=== PATIENT | female | born 2000 | race Caucasian/White ===

== ENCOUNTER 2025-06-26 06:14 | Emergency (ER) | payer OTHER, SELFPAY ==
[2025-06-26 06:22] VITALS: BP 139/86; PULSE 85; RESP 16; TEMP 36.7; O2SAT 98; BMI 31.3
--- NOTE | 2025-06-26 06:37 | ED.WOUNDLAC ---
HPI - Wound/Laceration General Date Seen: 06/26/25 Chief Complaint: Laceration/Wound Stated Complaint: L hand lac Time Seen by Provider: 06/26/25 06:28 Source: patient Mode of arrival: ambulatory Limitations: no limitations History of Present Illness HPI narrative: Patient is a 24-year-old female presenting to emergency department for laceration to her left thenar eminence. 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 She is unsure when her last tetanus shot was. She denies any other injuries. States this occurred about an hour prior to arrival. No other concerns noted Related Data Home Medications ?Medication ?Instructions ?Recorded ?Confirmed No Known Home Medications 06/26/25 06/26/25 Allergies Allergy/AdvReac Type Severity Reaction Status Date / Time No Known Drug Allergies Allergy Verified 06/26/25 06:25 Review of Systems Narrative: Pertinent systems reviewed and were negative unless stated in HPI PFSH PFSH Social History Smoking Status: Never smoker How often do you have a drink containing alcohol: never AUDIT-C Alcohol total score: 0 Non-prescribed substance use: denies use Exam Narrative: Exam Narrative: Const: Well-nourished, Well-developed, in no distress Eyes: No conjunctival injection, and symmetrical lids HENT: Atraumatic external nose and ears. Moist mucous membranes. MSK:Extremities w/o deformity, Normal Active ROM Skin: Warm, Dry. 5 cm laceration to the left thenar eminence more on the lateral aspect. For the most part it is very superficial and I am unable to pull laceration a part other than one cm area at the distal portion. Even then it just barely pulls apart and looks to be very superficial. Neuro: Normal Muscle tone, No focal neurological deficits. Psych: Awake, Alert, & Oriented x3. Appropriate mood and affect. Const: Vital Signs, click to edit/add: Vital Signs - 24 hr 06/26/25 06:22 Temperature 98.1 F Pulse Rate [Pulse Oximeter] 85 Respiratory Rate 16 Blood Pressure [Ri ght Upper Arm] 139/86 Pulse Oximetry 98 Oxygen Delivery Me thod Room Air Course Vital Signs Vital signs: Initial Vital Signs Temperature 98.1 F 06/26/25 06:22 Temperature Source Temporal Artery Scan 06/26/25 06:22 Pulse Rate 85 06/26/25 06:22 Respiratory Rate 16 06/26/25 06:22 Blood Pressure 139/86 06/26/25 06:22 Blood Pressure Mean 103 06/26/25 06:22 Blood Pressure Position Sitting 06/26/25 06:22 Pulse Oximetry 98 06/26/25 06:22 Oxygen Delivery Method Room Air 06/26/25 06:22 Vital Signs Temperature 98.1 F 06/26/25 06:22 Pulse Rate 85 06/26/25 06:22 Respiratory Rate 16 06/26/25 06:22 Blood Pressure 139/86 06/26/25 06:22 Pulse Oximetry 98 06/26/25 06:22 Oxygen Delivery Method Room Air 06/26/25 06:22 Temperature 98.1 F 06/26/25 06:22 Pulse Rate 85 06/26/25 06:22 Respiratory Rate 16 06/26/25 06:22 Blood Pressure 139/86 06/26/25 06:22 Pulse Oximetry 98 06/26/25 06:22 Oxygen Delivery Method Room Air 06/26/25 06:22 MDM - Wound/Laceration MDM Narrative Medical decision making narrative: Patient is a 24-year-old female presenting to the emergency department for left hand laceration. Overall this is a very superficial laceration and I do not believe sutures are needed as I am unable to pull most a laceration apart. A little bit I am able to pull apart just barely pulls apart. I do think glue would help keep it together for the next few days. The more the or to heal up properly. Do not believe sutures are necessary. She is unsure when her last tetanus was so tetanus will be updated. We are unable to look it up online currently. She is agreeable to this plan. Area was washed out thoroughly. No signs of deep structure involvement. Move was placed with appropriate approximation wound. Antibiotics are not indicated. She will be discharged Discharge Plan Discharge Clinical Impression: Laceration Patient Disposition: Home, Self-Care Condition: Stable Instructions: Skin Adhesive Care (ED) Additional Instructions: Skin glue will dissolve on its own over the next week. Patient can wash the area but do not scrub as this may pole off the skin glue prematurely. Pat dry the area. Do not use topical antibiotics as that will dissolve the glue faster. If worried about scar formation can place sunscreen over the area for the next 6 months whenever patient goes outside once glue is gone. Prescriptions: No Action No Known Home Medications Follow Up/Referrals: Provider,Not a Local [Primary Care Provider, Family Practice] Stand Alone Forms: [employer] Info Instructions
--- OUTSIDE RECORDS SUMMARY | 2025-06-26 06:45 | XMS_ITS | Encounter Summary ---
Author Organization [facility] Address [address] [facility] [place] [address] Care Team Providers Care Assembler Fitter Name Role Phone Reece Gutierrez MD Primary Care Provider [phone] Anju Ennis MD Unavailable Rio Frausto MD Unavailable [phone] Rose Rivera MD, Charles Unavailable [phone] Rose Rivera MD, Charles Unavailable [phone] Rose Rivera MD, Charles Unavailable [phone] Silva aRmos MD Unavailable [phone] Encounter Details Date Type Department Care Team (Late st Contact Info) Description 05/22/2024 [facility] [address] 3rd Floor,[address] [place] [facility] [address] [place] [phone] Jaclyn Tanner CMA Social History Tobacco Use Types Packs/Day Years Used Date Smoking Tobacco: Never Smokeless Tobacco: Never Alcohol Use Standard Drinks/Week Comments No 0 (1 standard drink = 0.6 oz pur e alcohol) AUDIT-C Answer Date Recorded Frequency of Alcohol Consumption Never 10/28/2018 Average Number of Drinks Not on file 019 Frequency of Binge Drinking Not on file 03/2019 PHQ-2 Answer Date Recorded PHQ-2 Score 0 10/21/2023 Adolescent Education Answer Date Record ed Getting School Help Needed Not on file 06/09 Comments No Sex and Gender Information Value Date Recorded Sex Assigned at Not on file 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 Gender Identity Not on file Sexual Orientation Not on file documented as of this encounter Plan of Treatment Not on file documented as of this encounter Visit Diagnoses Not on filedocumented in this encounter Care Teams Assembler Fitter Relationship Specialty [place] [address] [place] [address] PCP - General Family Practice 10/14/18 Anju Ennis MD [address] [place] [address] Pediatrics 05/06/20 Rio Frausto MD [address] [place] [address] Genetics, Clinical 10/13/22 Conor Rose Jr., MD [address] [place] [address] Genetics, Clinical 12/07/22 Conor Rose Jr., MD [address] [place] [address] Genetics, Clinical 01/12/23 Conor Rose Jr., MD [address] [place] [address] Assigned Pediatric Specialist Provider 05/08/23 11/11/24 Silva Ramos MD [facility] Specialty [place] - Rheumatology [address] [place] [address] Assigned Rheumatology Provider 11/05/23 05/14/25 documented as of this encounter
--- OUTSIDE RECORDS SUMMARY | 2025-06-26 06:45 | XMS_ITS | Encounter Summary ---
Author Organization [facility] Address [address] [place] [address] Care Team Providers Care Manager Product Management Name Role Phone Reece Gutierrez MD Primary Care Provider [phone] Anju Ennis MD Unavailable Rio Frausto MD Unavailable [phone] Rose Rivera MD, Charles Unavailable [phone] Rose Rivera MD, Charles Unavailable [phone] Rose Rivera MD, Charles Unavailable [phone] Silva Ramos MD Unavailable [phone] Encounter Details Date Type Department Care Team (Late st Contact Info) Description 11/09/2023 [facility] Advice 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 Gender Identity Not on file Sexual Orientation Not on file documented as of this encounter Plan of Treatment Not on file documented as of this encounter Visit Diagnoses Not on filedocumented in this encounter Care Teams Manager Product Management Relationship Specialty [place] [address] [place] [address] PCP - General Family Practice 10/14/18 Anju Ennis MD [facility] [place] [address] Pediatrics 05/06/20 Rio Frausto MD [address] [place] [address] Genetics, Clinical 10/13/22 Conor Rose Jr., MD [address] [place] [address] Genetics, Clinical 12/07/22 Conor Rose Jr., MD [address] [place] [address] Genetics, Clinical 01/12/23 Conor Rose Jr., MD [address] [place] [address] Assigned Pediatric Specialist Provider 05/08/23 11/11/24 Silva Ramos MD [facility] Specialty [place] - Rheumatology [address] [place] [address] Assigned Rheumatology Provider 11/05/23 05/14/25 documented as of this encounter
--- OUTSIDE RECORDS SUMMARY | 2025-06-26 06:45 | XMS_ITS | Clinical Summary ---
Author Organization [employer] Address [address], [place] [address] Care Team Providers Care Metal Stamping Machine Operator Name Role Phone Needs Pcp, Assignment Primary Care Provider [phone] Source Comments You are receiving this document as you are listed as the primary care provider,follow-up provider, or the patient has been referred to you for consultation.This is in compliance with the Medicare andSelect [facility] EHR Incentive Program,which states Providers who transition their patient to another setting of careor provider of care or refers their patient to another provider of care shouldprovide summary care record for each transition of care or referral. [employer] Allergies No known active allergies Medications CONCERTA 54 MG controlled release tablet Active Active Problems Problem Noted Date Diagnosed Date Migraine with aura 05/25/2024 BMI 36.0-36.9,adult 05/04/2023 Autism spectrum disorder 05/04/2023 Arthralgia of both knees 11/18/2022 Plantar fasciitis 11/18/2022 Overview (01/04/2025): bilateral bilateral Cholecystitis 01/30/2022 Attention deficit hyperactivity disorder 019 Vitamin D deficiency 11/27/2016 Strabismus 05/02/2013 Immunizations Immunization Administration Dates Next Due HepB Ped/Adol (0-18 yrs) 07/25/2003,2002,0 2002 Hib, Unspecified Formulation 07/25/2003,11/16/19 03,2002 Hib/HBV 07/25/2003,2002,2002 MCV4 Menveo 2m.+ (two vial) 04/19/2015 MMR 07/29/2006,02/28/2004 Pneumococcal 7, PED 07/25/2003,01/19/2003,2002,2002 Tdap 04/19/2015 Varicella 04/18/2008,07/25/2003 Social History Tobacco Use Types Packs/Day Years Used Date Smoking Tobacco: Never Smokeless Tobacco: Never Tobacco Cessation:Counseling Given: Not Answered Comments Unknown Sex and Gender Information Value Date Recorded Sex Assigned at Not on file Legal Sex Female 5:32 AM CDT Gender Identity Not on file Sexual Orientation Not on file Last Filed Vital Signs Vital Sign Reading Time Taken Comments Blood Pressure 135/89 01/04/2025 3:14 PM CDT Pulse 84 01/04/2025 3:14 PM CDT Temperature 37.3 C (99.1 F) 12/22/2022 5:46 PM CDT Respiratory Rate 18 12/22/2022 5:46 PM CDT Oxygen Saturation 97% 12/22/2022 5:46 PM CDT Inhaled Oxygen Concentration - - Weight 93.8 kg (206 lb 12.8 oz) 01/04/2025 3:14 PM CDT Height - - Body Mass Index - - Plan of Treatment Health Maintenance Due Date Last Done Comments Cervical Cancer Screening Due 2002 Chlamydia 2002 Hep C Screening (Preventive Services) 2002 MenB Immunization Discussion 2002 HPV Vaccine (1 - 3-dose series) 2017 HIV Screening (Preventive Services) 2018 Adult Preventive Visit 2020 DTaP/Tdap/Td Vaccine (2 - Tdap) 04/19/2025 04/19/2015 COVID-19 Vaccine ( - season) 2025 Influenza Vaccine (#1) 2025 Zoster/Shingles Vaccine (1 of 2) 2052 HepB Vaccine Completed 07/25/2003, 10/2002, 2002, Additional history exists Hib Vaccine Completed 07/25/2003, 10/2002, 2002, Additional history exists Pneumococcal Vaccine Aged Out 07/25/2003, 01/19/2003, 2002, Additional history exists No longer eligible based on patient's age to complete this topic Varicella Vaccine Completed 04/18/2008, 07/25/2003 MCV4 Vaccine Aged Out 04/19/2015 No longer eligi ble based on patient's age to complete this topic HepA Vaccine Aged Out No longer eligi ble based on patient's age to complete this topic IPV (Polio) Vaccine Aged Out No longe r eligible based on patient's age to complete this topic Insurance BCBS OUT OF STATE Care Teams Metal Stamping Machine Operator Relationship Specialty Start Date End Date Needs Pcp, [place], [place] [id number] PCP - General 07/26/22
--- OUTSIDE RECORDS SUMMARY | 2025-06-26 06:45 | XMS_ITS | Encounter Summary ---
Author Organization [facility] Address [address] [place] [address] Care Team Providers Care Commanding Officer Garage Name Role Phone Reece Gutierrez MD Primary Care Provider [phone] Anju Ennis MD Unavailable Rio Frausto MD Unavailable [phone] Rose Rivera MD, Charles Unavailable [phone] Rose Rivera MD, Charles Unavailable [phone] Rose Rivera MD, Charles Unavailable [phone] Silva Ramos MD Unavailable [phone] Encounter Details Date Type Department Care Team (Late st Contact Info) Description 11/03/2023 [facility] Medical Advice [facility] [address] [address] Joselin Lennon Social History Tobacco [...] on file 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 Gender Identity Not on file Sexual Orientation Not on file documented as of this encounter Plan of Treatment Not on file documented as of this encounter Visit Diagnoses Not on filedocumented in this encounter Care Teams Commanding Officer Garage Relationship Specialty [place] [address] [place] [address] PCP - General Family Practice 10/14/18 Anju Ennis MD [facility] [place] [address] Pediatrics 05/06/20 Rio Frausto MD [address] [place] [address] Genetics, Clinical 10/13/22 Conor Rose Jr., MD [address] [place] [address] Genetics, Clinical 12/07/22 Conor Rose Jr., MD [address] [place] [address] Genetics, Clinical 01/12/23 Conor Rose Jr., MD [address] [place] [address] Assigned Pediatric Specialist Provider 05/08/23 11/11/24 Silva Ramos MD [facility] Specialty [place] - Rheumatology [address] [place] [address] Assigned Rheumatology Provider 11/05/23 05/14/25 documented as of this encounter
--- OUTSIDE RECORDS SUMMARY | 2025-06-26 06:46 | XMS_ITS | Clinical Summary ---
Author Organization [facility] Address [address] [place] [address] Care Team Providers Care Dredge Mechanic Name Role Phone Reece Gutierrez MD Primary Care Provider [phone] Anju Ennis MD Unavailable Rio Frausto MD Unavailable [phone] Rose Rivera MD, Charles Unavailable [phone] Rose Rivera MD, Charles Unavailable [phone] Medications SUMAtriptan Succinate (IMITREX PO) Active methylphenidate (CONCERTA) 54 MG CR tabletIndications :Attention deficit hyperactivity disorder (ADHD), combined type Take 1 tablet (54 mg) by mouth every morning 30 tablet Active Additional Information Patient not taking.Reported on 05/03/2023 Active Problems Problem Noted Date Diagnosed Date ADHD (attention deficit hyperactivity disorder) 10/21/2023 Knee pain, bilateral 10/21/2023 Autism spectrum disorder 05/04/2023 BMI 36.0-36.9,adult 05/04/2023 Arthralgia of both knees 05/04/2023 Pain in both feet 05/04/2023 Plantar fasciitis 11/18/2022 Overview (05/23/2024): bilateral Patellofemoral arthralgia of both knees 11/19/19 Cholecystitis 01/30/2022 ADHD (attention deficit hype ractivity disorder), combined type 10/28/2018 Vitamin D deficiency 11/27/2016 Strabismus 05/11/2013 Immunizations Immunization Administration Dates Next Due Comvax (HIB/HepB) 07/25/2003,2002,09/01/19 03 DTAP (<7y) 07/29/2006, 4,01/19/2003,11/15,2002 DTaP, Unspecified 07/29/2006, 4,01/19/2003,11/15,2002 HIB, Unspecified 07/25/2003,2002, 3 HPV9 (Gardasil) 01/09/2019 Hepatitis B, Peds (Engerix-B/Recombivax HB) 07/25/2003,2002,2002 Influenza (IIV3) PF 05/02/2013 Influenza (prior to 2023) 05/15/2016,08/26/2004 Influenza Vaccine >6 months,quad, PF 05/15/2016, 05/02/2013,08/26/2004 Influenza, Split Virus, Triv alent, Pf (Fluzone\Fluarix) 05/15/2016,08/26/2004 MMR (MMRII) 07/29/2006, 6,02/28/2004,02/27 MMR/V (Proquad) 07/29/2006,02/28/2004 Meningococcal ACWY (Menveo ) 04/19/2015 Pneumo Conj 13-V (2010&after) 07/25/2003 ,01/19/2003,2002,09/01 Pneumococcal (PCV 7) 07/25/2003,01/20/20 03,2002,09/01 Polio, Unspecified 07/29/2006, 4,2002,09/01 Poliovirus, inactivated (IPV) 07/29/2006 ,02/28/2004,2002,09/01 TDAP Vaccine (Adacel) 04/19/2015 Varicella (Varivax) 04/18/2008,07/25/2003 Family History Medical History Relation Comments Psoriasis Maternal Grandmother Relation Status Comments Maternal Grandmother Social History Tobacco Use Types Packs/Day Years Used Date Smoking Tobacco: Never Smokeless Tobacco: Never Tobacco Cessation:Counseling Given: Not Answered Alcohol Use Standard Drinks/Week Comments No 0 [...] on file 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 Gender Identity Not on file Sexual Orientation Not on file Last Filed Vital Signs Vital Sign Reading Time Taken Comments Blood Pressure 127/84 10/21/2023 8:55 AM YOGA INSTRUCTOR Pulse 94 10/21/2023 8:55 AM YOGA INSTRUCTOR Temperature 36.4 C (97.5 F) 05/01/2020 10:29 AM CDT Respiratory Rate 16 10/21/2023 8:55 AM YOGA INSTRUCTOR Oxygen Saturation 100% 09/22/2019 10:57 AM YOGA INSTRUCTOR Inhaled Oxygen Concentration - - Weight 102.7 kg (226 lb 8 oz) 10/21/2023 8:55 AM YOGA INSTRUCTOR Height 170.3 cm (5' 7.05) 10/21/2023 8:55 AM CS T Body Mass Index 35.43 10/21/2023 8:55 AM YOGA INSTRUCTOR Plan of Treatment Health Maintenance Due Date Last Done Comments ADVANCE CARE PLANNING 2002 ANNUAL REVIEW OF HM ORDERS 2002 MENINGITIS B VACCINE (1 of 2 - Standard) 2018 HPV VACCINE (2 - 3-dose series) 02/06/2019 01/09/2019 HEPATITIS C SCREENING 2020 PHQ-2 (once per calendar year) 2024 10/21/2023, 05/03/2023, 09/22/2019, Additional history exists DTAP/TDAP/TD VACCINE (7 - Td or Tdap) 04/19/2025 04/19/2015, 07/29/2006, 07/29/2006, Additional history exists COVID-19 VACCINE ( - season) 2025 01/03/2021, 12/13/2020 INFLUENZA VACCINE (#1) 2025 6, 05/15/2016, 05/15/2016, Additional history exists YEARLY PREVENTIVE VISIT 05/25/2025 05/25/2024 PAP 05/25/2027 05/25/2024 ZOSTER VACCINE (1 of 2) 2052 HEPATITIS B VACCINE Completed 07/25/2003, 07/25/2003, 2002, Additional history exists PNEUMOCOCCAL VACCINE: PEDIATRICS (0 to 5 YEARS) AND AT-RISK PATIENTS (6 to 49 YEARS) Aged Out 07/25/2003, 07/25/2003, 01/19/2003, Additional history exists No longer eligible based on patient's age to complete this topic MENINGITIS VACCINE Aged Out 04/19/2015 No longer eligible based on patient's age to complete this topic HIV SCREENING Completed 05/25/2024 Procedures Procedure Name Priority Date/Time Associated Diagnosis Comments HIV ANTIGEN ANTIBODY COMBO Routine 05/25/2024 3:57 PM CDT Encounter for screening for infections with a predominantly sexual mode of transmission GYNECOLOGIC CYTOLOGY Routine 05/25/2024 2:48 PM CDT Encounter for screening for malignant neoplasm of cervix from Last 3 Months or Most Recently Relevant to Health Maintenance Results * HIV Antigen Antibody Combo [facility] (05/25/2024 3:57 PM CDT) HIV Antigen Antibody Combo Nonreactive Nonreactive 05/26/2024 12:14 PM CDT [facility] Comment:Negative HIV-1 p24 a ntigen and HIV-1/2 antibody screening test results usually indicate the absence of HIV-1 and HIV-2 infection. However, such negative results do not rule-out acute HIV infection. If acute HIV-1 or HIV-2 infection is suspected, detection of HIV-1 or HIV-2 RNA is recommended. This result is obtained using the Nirav Elecsys HIV Duo method on the burke [id number] immunoassay analyzer. Blood TOPOGRAPHY UNKNOWN / Unknown Client Draw / Unknown 05/25/2024 3:57 PM CDT 05/25/2024 8:30 PM CDT us Maylin Fontaine PA-C LAB - BLOOD ORDERABLES Final Result [facility] [address] [facility], Room [address] [place] [phone] * (ABNORMAL) Gynecologic Cytology (PAP) (05/25/2024 2:48 PM CDT) Interpretation Low-grade squamous intraepithelial lesion (LSIL) encompassing HPV/mild dysplasia/CIN1(A) 06/01/2024 9:11 AM CDT [facility] at 0911 CDT Comment Papanicolaou Test Limitations: Cervical cytology is a screening test with limited sensitivity, and regular screening is critical for cancer prevention. Pap tests are primarily effective for the diagnosis/prevent ion of squamous cell carcinoma, not adenocarcinoma or other cancers. 06/01/2024 9:11 AM CDT LABORATORY Specimen Adequacy Satisfactory for evaluation, endocervical/ward sformation zone component absent 06/01/2024 9:11 AM CDT [facility] Clinical Information irregular bleeding 06/01/2024 9:11 AM CDT [facility] LMP/Menopause Date Irregular 06/01/2024 9:11 AM CDT [facility] Reflex Testing Yes if ASCUS 06/01/20 24 9:11 AM CDT [facility] Previous Abnormal? No 06/01/2024 9:11 AM CDT [facility] Previous Abnormal Diagnosis N/A 06/01/2024 9:11 AM CDT [facility] Performing Labs The technical component of this testing was completed at [facility]. Stain controls for all stains resulted within this report have been reviewed and show appropriate reactivity. 06/01/2024 9:11 AM CDT [facility] Brushing CERVIX UTERI STRUCTURE / Unknown 05/25/2024 2:48 PM CDT 05/25/2024 8:27 PM CDT us Maylin Nichelle Rosharon SHETH Final R esult [facility] [address] Lab (1st floor, no room number) [place] [address], [facility] [address], [address] [place] [address], [facility] from Last 3 Months or Most Recently Relevant to Health Maintenance Insurance BCBS OUT OF STATE BCBS OUT OF STATE Care Teams Dredge Mechanic Relationship Specialty [place] [address] [place] [address] PCP - General Family Practice 10/14/18 Anju Ennis MD [address] [place] [address] Pediatrics 05/06/20 Rio Frausto MD [address] [place] [address] Genetics, Clinical 10/13/22 Conor Rose Jr., MD [address] [place] [address] Genetics, Clinical 12/07/22 Conor Rose Jr., MD [address] [place] [id number] Genetics, Clinical 01/12/23
--- OUTSIDE RECORDS SUMMARY | 2025-06-26 06:46 | XMS_ITS | Clinical Summary ---
Author Organization [facility] Address [address] [place] [address] Care Team Providers Care Transmission And Coordination Engineer Name Role Phone Pcp, No Primary Care Provider Unavailabl e Allergies No known active allergies Medications acetaminophen (TYLENOL EXTRA STRGTH) 500 mg tablet Take 1,000 mg by mouth every 6 hours if needed. Max acetaminophen dose: 4000mg in 24 hrs. Active albuterol HFA (Ventolin HFA) 90 mcg/actuation inhalerIndications :COVID-19 Inhale 2 Puffs by mouth every 4 hours while awake. 1 Each 05/11/20 22 Active ondansetron (ZOFRAN ODT) 4 mg disintegrating tabletIndications: Nausea Place 1 Tablet (4 mg) on the tongue two times daily. 20 Tablet 03/22/20 24 Active Active Problems Problem Noted Date Diagnosed Date Cholecystitis 01/30/2022 Strabismus 05/02/2013 Immunizations Immunization Administration Dates Next Due DTaP 07/29/2006, 4,01/19/2003,11/15,2002 HIB-HepB (Comvax) 07/25/2003, 3,2002,11/15,2002,2002 Influenza Virus, Unspecified 08/26/2004 Influenza, IIV3 (Age >=3 years) 05/02/2013 MENINGOCOCCAL VACCINE 2 VIAL 2MO-55YO (MENVEO) 04/19/2015 MMR 07/29/2006,02/28/2004 Pneumococcal conj 13-Valent (Prevnar 13) 07/25/2003,01/19/2003,2002,09/01 Polio Virus, Unspecified 07/29/2006,07/03/2004,2002,09/01 Tdap 04/19/2015 Varicella Vaccine 04/18/2008,07/25/2003 Social History Tobacco Use Types Packs/Day Years Used Date Smoking Tobacco: Never Smokeless Tobacco: Never Tobacco Cessation:Counseling Given: No Alcohol Use Standard Drinks/Week Comments No 0 (1 standard drink = 0.6 oz pur e alcohol) Interpersonal Safety Answer Date Record ed Are you being hit, kicked, p ushed or yelled at (see row info)? No 03/22/2024 Interpersonal Safety Abuse 12 - 18 Not on file 03/22/2024 Interpersonal Safety Ambulatory Vulnerability No t on file 03/22/2024 Comments No Sex and Gender Information Value Date Recorded Sex Assigned at Not on file Legal Sex Female 6:28 AM [employer] Gender Identity Not on file Sexual Orientation Not on file Obstetrics History Last Filed Vital Signs Vital Sign Reading Time Taken Comments Blood Pressure 132/68 03/22/2024 12:46 PM CDT Pulse 101 03/22/2024 12:46 PM CDT Temperature 37.1 C (98.7 F) 03/22/2024 12:46 PM CDT Respiratory Rate 16 03/22/2024 12:46 PM CDT Oxygen Saturation 96% 03/22/2024 12:46 PM CDT Inhaled Oxygen Concentration - - Weight 90.7 kg (200 lb) 03/22/2024 12:46 PM CDT Height 170.2 cm (5' 7) 03/22/2024 12:46 PM CDT Body Mass Index 31.32 03/22/2024 12:46 PM CDT Plan of Treatment Health Maintenance Due Date Last Done Comments Depression screening for age 12+ 2014 HIV for age 15-65 2017 HPV series for age 9-45 (1 - 3-dose series) 2017 BMI (ht and wt on same day) for age 18+ 2020 Hepatitis C screening for ag e 18-79 2020 Pap test for age 21-65 2023 Tetanus booster 04/19/2025 04/19/2015 Influenza Vaccine (#1) 2025 05/02/2013, 2004 RSV vaccine for adults or (1 - 1-dose 75+ series) 2077 Hepatitis B series for 19+ Completed 07/25, 07/25/2003, 2002, Additional history exists Pneumococcal series for age 6-49 Completed 07/25/2003, 01/19/2003, 2002, Additional history exists Insurance [employer] [facility] Advance Directives * Full Code (Latest Code Status on File) Date Activated Date Inactivated Comments 01/30/2022 1:42 PM 01/31/2022 3:23 PM Question Answer Comments Code Status Discussion: Reviewed Preferences * Full Code Date Activated Date Inactivated Comments 01/29/2022 5:55 PM 01/30/2022 1:42 PM Question Answer Comments Code Status Discussion: Unable to Assess Preferences, Provider to review later Care Teams Transmission And Coordination Engineer Relationship Specialty Start Date End Date Pcp, No . PCP - General 04/01/23
--- OUTSIDE RECORDS SUMMARY | 2025-06-26 06:46 | XMS_ITS | Data Portability ---
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, [id number] Address [address] [place] [address] Assessment Encounter Date Assessment Date Assessment LastModified by Organization Details LastModified Time 12/15/2024 12/15/2024 I spent a total of 15 minutes providing care for this patient including: preparing to see the patient, obtaining a medical history, completing a medically appropriate physical exam, completing documentation of visit information and plans in the EMR, counseling the patient and/or caregiver regarding her diagnosis, treatment options and follow up plans, as well as any necessary communication of subsequent test results to the patient, reviewing medical records, counseling the patient and/or caregiver regarding health maintenance recommendations, discussing or generating a written summary of the patient s care for referring or consulting healthcare providers Excludes time spent on separately identifiable services. [email or web address] Not available 12/20/2024 14:32:15 Plan of Treatment Reminders Order Date Submit Date Provider Last Modified By Organization Details Last Modified Time Details Appointments None recorded. Lab test, urine 2024 025 marquez [id number] seamusceasar, [address], [address], [place], [address], 5 12:09:11 CT + NG DNA, PCR, unspecifie d specimen 2023 024 GALDINO [id number] sam, [address], [address], [place], [address], 4 14:50:09 HIV 1+2 AB + HIV 1 p24 Ag, qualitativ e immunoassa y, serum 2023 [facility], [address], [address], [place], [address], 4 08:33:40 treponema pallidum Ab, qualitativ e, serum 2023 [facility], [address], [address], [place], [address], 4 08:33:38 progestero ne, serum 2023 [facility], [address], [address], [place], [address], 4 08:33:42 lipid panel, serum 2023 [facility], [address], [address], [place], [address], 4 08:33:42 hemoglobin A1c, QN, blood 2023 [facility], [address], [address], [place], [address], 4 08:33:37 androstene nayeli, serum 2023 [facility], [address], [address], [place], [address], 4 08:33:45 dhea-sulfa te, serum 2023 [facility], [address], [address], [place], [address], 4 08:33:49 17-hydroxy progestero ne, QN, serum 2023 [facility], [address], [address], [place], [address], 4 08:33:47 testostero ne, free + total, w/ shbg, serum 2023 024 [facility], [address], [address], [place], [address], 4 16:34:03 Pap test, slide(s), cervical 2023 024 [facility], [address], [address], [place], [address], 4 10:12:42 Referral None recorded. Procedures catheteriz ation and introducti on of saline or contrast material for saline infusion sonohyster ography (SIS) or hysterosal pingograph y (PROC) [address], [facility] [address] [facility], [address], [place], [address], 5 14:04:37 Surgeries None recorded. Imaging US, saline infused uterus [address], [facility] [facility], [address], [place], [address], 5 12:21:53 US, 3D rendering [email or web address], [facility] [facility], [address], [place], [address], 5 12:10:58 Medication Orders Prometrium 200 mg capsule 2024 025 [id number], [address] [place], [address], 5 22:04:58 Rboyn 0.35 mg tablet 2023 024 [id number], [address] [place], [address], 16:00:31 Patient TargetsNo targets recorded. Patient Instructions Encounter Date Encounter Id Patient Instructions Last Modified By Organization Details Last Modified Time 05/25/2024 [id number] If you are currently seeking a primary care physician please call our office to schedule with Dr. Sherine Avalos. She is a family medicine physician available to see female patients, 12 and older within our [facility]. coestreich Not available 05/25/2024 09:50:45 - Encouraged breast self-awareness and monthly breast exams. - Calcium and vitamin D intake discussed. - Encouraged regular exercise. - Discussed cervical cancer screening guidelines. [email or web address] Not available 05/25/2024 09:50:45 Reason for Referral None Reported. Results Created Date Observation Date Name Description Value Unit Range Abnormal Flag Note LastModifiedBy Organization Detail LastModifiedTime 05/25/2005/25/2024 HEMOG LOBIN A1C estimated average glucose 103 mg/dL <117 Not Available [address], [place], [address], 06/01/2024 08:33:37 05/25/2005/25/2024 HEMOG LOBIN A1C hemoglobin A1C 5.2 % <5.7 Ceci l <5.7% Predi abete s 5.7-6 .4% Diabe tegan 6.5% or highe r Note: Adopt ed from ADA conse nsus guide lines . Not Available [address], [place], [address], 06/01/2024 08:33:37 05/25/20 24 05/25/2024 TREPO NEMA ABS W REFLE X TO RPR AND CONF OR TITER treponema antibody total Nonrea ctive nonrea ctive Not Available [address], [place], [address], 06/01/2024 08:33:38 05/25/2005/25/2024 HIV ANTIG EN ANTIB DARRIN COMBO CASCA DE HIV antigen antibody combo Nonrea ctive nonrea ctive Negat erica HIV-1 p24 antig en and HIV-1 /2 antib darrin scree jose manuel test resul ts usual ly indic ate the absen ce of HIV-1 and HIV-2 infec tion. Howev er, such negat erica resul ts do not rule- out acute HIV infec tion. If acute HIV-1 or HIV-2 infec tion is suspe cted, detec tion of HIV-1 or HIV-2 RNA is recom dell d. This resul t is obtai riccardo using the [employer] HIV Duo metho d on the burke e801 immun oassa y samson zer. Not Available [address], [place], [address], 06/01/2024 08:33:40 05/25/20 24 05/25/2024 SEX HORMO NE HERNAN NG GLOBU FRANKLYN sex hormone binding globulin 25 nmol/ L 30-135 low Not Available [address], [place], [address], 06/01/2024 08:33:41 05/25/20 24 05/25/2024 PROGE STERO NE progesterone 0.2 NG/mL Healt hy Postm enopa usal Women : Postm enopa use: <=0.1 ng/mL Healt hy Pregn ant Women : 1st Trime ster: 11.0- 44.3 ng/mL 2nd Trime ster: 25.4- 83.4 ng/mL 3rd Trime ster: 58.7- 214.0 ng/mL Healt hy Women Cycle Phase : Folli cular : <0.1- 0.2 ng/mL Ovula tion: 0.1-4 .1 ng/mL Lutea l: 4.1-1 4.5 ng/mL Healt hy Women Cycle Sub Phase : Early Folli cular : <0.1- 0.3 ng/mL Inter media te Folli cular : <0.1- 0.2 ng/mL Late Folli cular : <0.1- 0.2 ng/mL Ovula tion: <0.1- 2.4 ng/mL Early Lutea l: 2.4-1 5.1 ng/mL Inter media te Lutea l: 4.8-2 0.9 ng/mL Late Lutea l: 0.5-1 3.5 ng/mL Not Available [address], [place], [address], 06/01/2024 08:33:42 05/25/20 24 05/25/2024 LIPID PANEL cholesterol 177 mg/dL <200 Not Available [address], [place], [address], 06/01/2024 08:33:42 05/25/20 24 05/25/2024 LIPID PANEL triglyceride s 160 mg/dL <150 high Not Available [address], [place], [address], 06/01/2024 08:33:42 05/25/20 24 05/25/2024 LIPID PANEL direct measure HDL 56 mg/dL >=50 Not Available [facility] [address], [place], [address], 06/01/2024 08:33:42 05/25/20 24 05/25/2024 LIPID PANEL LDL cholesterol calculated 89 mg/dL <100 Not Available [address], [place], [address], 06/01/2024 08:33:42 05/25/20 24 05/25/2024 LIPID PANEL non HDL cholesterol 121 mg/dL <130 Not Available [address], [place], [address], 06/01/2024 08:33:42 05/25/20 24 05/25/2024 LIPID PANEL patient fasting > 8hrs? No Vanessa stero l Yanet able: < 200 mg/dL Borde rline High: 200 - 239 mg/dL High: >= 240 mg/dL Trigl yceri thanh Ceci l: < 150 mg/dL Borde rline High: 150 - 199 mg/dL High: 200-4 99 mg/dL Very High: >= 500 mg/dL Direc t Measu re HDL Femal e: >= 50 mg/dL Male: >= 40 mg/dL LDL Vanessa stero l Yanet able: < 100 mg/dL Above Yanet able: 100 - 129 mg/dL Borde rline High: 130 - 159 mg/dL High: 160 - 189 mg/dL Very High: >= 190 mg/dL Non HDL Vanessa stero l Yanet able: < 130 mg/dL Above Yanet able: 130 - 159 mg/dL Borde rline High: 160 - 189 mg/dL High: 190 - 219 mg/dL Very High: >= 220 mg/dL Not Available [address], [place], [address], 06/01/2024 08:33:42 05/25/20 24 05/25/2024 TESTO STERO NE FREE AND TOTAL free testosterone calculated 1.46 NG/dL Adult Femal e Refer ence Range : 18-30 Years : 0.08- 0.74 ng/dL 31-40 Years : 0.13- 0.92 ng/dL 41-51 Years : 0.11- 0.58 ng/dL Postm enopa usal: 0.06- 0.38 ng/dL Not Available [address], [place], [address], 06/01/2024 08:33:44 05/25/20 24 05/25/2024 TESTO STERO NE FREE AND TOTAL testosterone total 69 NG/dL 8-60 high This test was devel oped and its perfo rmanc e aba cteri stics deter mined by the [facility], Speci al Chemi stry Labor atory . It has not been clear ed or appro nancie by the FDA. The labor atory is regul ated under CLIA as quali fied to perfo rm high- compl exity testi ng. This test is used for clini janes purpo ses. It shoul d not be regar ded as inves tigat ional or for resea [facility]. Not Available [facility] [address], [place], [address], 06/01/2024 08:33:44 05/25/20 24 05/25/2024 LUDMILA STENE NAYELI androstenedi one 3.356 NG/mL 0.260- 2.140 high INTER PRETI VE INFOR MATIO N: Ludmilahyacinth mcmillan , Femal es 18 years and older Post- menop ausal : 0.13- 0.82 ng/mL REFER ENCE INTER AIMEE: Ludmlia stene nayeli by TMS Acces s compl ete set of age- and/o r gende r-spe cific refer ence inter vals for this test in the [facility] Dire[facility] tory ([facility]). This test was devel oped and its perfo rmanc e aba cteri stics deter mined by [employer] [facility]. It has not been clear ed or appro nancie by the US Food and Drug Admin istra tion. This test was perfo rmed in a CLIA certi fied [facility] and is inten ded for clini janes purpo ses. Perfo rmed By: [employer] [facility] [address] [facility] [place] [address] [employer] Direc tor: Dutch mata MD, PhD CLIA Numbe r: [id number] Not Available [address], [place], [address], 06/01/2024 08:33:45 05/25/20 24 05/25/2024 17 OH PROGE STERO NE 17 oh progesterone 87 NG/dL <=630 Child harjeet: Prete rm infan ts may excee d 630 ng/dL ; howev er it is uncom mon to see level s reach 1000 ng/dL . Term infan ts, 0-28 days: <630 ng/dL . Level s fall from newbo rn (<630 ng/dL ) to prepu elina l gradu ally withi n 6 month s. Femal e Refer ence Range : <100 ng/dL Prepu elina l <80 ng/dL Folli cular <285 ng/dL Lutea l < 51 ng/dL Postm enopa usal Male Refer ence Range : <110 ng/dL Prepu elina l <2 20 ng/dL Adult This test was devel oped and its perfo rmanc e aba cteri stics deter mined by the [facility], Speci al Chemi stry Labor atory . It has not been clear ed or appro nancie by the FDA. The labor atory is regul ated under CLIA as quali fied to perfo rm high- compl exity testi ng. This test is used for clini janes purpo ses. It shoul d not be regar ded as inves tigat ional or for resea [facility]. 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 Pap tests are prima rily effec tive for the diagn osis/ preve ntion of squam ous cell carci noma, not adeno carci noma or other cance rs. BKR LAB AP COMMUNICATION LECTURER ADEQU ACY: Satis facto ry for evalu ation , endoc ervic al/tr ansfo rmati on zone compo nent absen t Path repor t.rel evant Hx Spec: irreg ular bleed ing BKR LAB AP LMP: Irreg ular BKR LAB AP HPV REFLE X: Yes if ASCUS BKR LAB AP PREVI OUS ABNOR MAL: No BKR LAB AP PREVI OUS ABNL DX: N/A Path repor t.com ments Imp Spec: The techn ical compo nent of this testi ng was compl eted [facility] . Stain contr ols for all stain s resul girma withi n this repor t have been revie wed and show appro priat e react ivity . Not Available [address], [place], [address], 06/01/2024 10:12:42 05/26/20 24 05/26/2024 CT + NG DNA, PCR, unspe cifie d speci men source endoce rvical Not Available [address], [address], 05/25/2024 16:00:51 05/26/20 24 05/26/2024 CT + NG DNA, PCR, unspe cifie d speci men CT not detect ed not detect ed normal Not Available [address], [address], 05/25/2024 16:00:51 05/26/20 24 05/26/2024 CT + NG DNA, PCR, unspe cifie d speci men GC not detect ed not detect ed normal Not Available [address] [place] [address], [address], 05/25/2024 16:00:51 01/27/20 25 01/26/2025 FOLLI EMANUEL STIMU LATIN G HORMO NE FSH 5.2 mIU/m L 19 years and older : Folli cular phase : 3.5-1 2.5 mIU/m L Ovula tion phase : 4.7-2 1.5 mIU/m L Lutea l phase : 1.7-7 .7 mIU/m L Postm enopa use: 25.8- 134.8 mIU/m L Not Available [address], [place], [address], 01/26/2025 23:01:26 01/27/20 25 01/26/2025 LUTEI NIZIN G HORMO NE luteinizing hormone 21.7 mIU/m L FEMAL E: Age 0 - 6 mo: <0.1- 8.2 mIU/m L 6 mo - 11 years : <0.1- 1.3 mIU/m L 11 - 14 years : <0.1- 10 mIU/m L 14 - 19 years : 0.4-2 5 mIU/m L 19 years and older : Folli cular Phase : 2.4-1 2.6 mIU/m L Ovula tion Phase : 14.0- 95.6 mIU/m L Lutea l Phase : 1.0-1 1.4 mIU/m L Postm enopa usal: 7.7-5 8.5 mIU/m L Not Available [address], [place], [address], 01/26/2025 23:01:27 01/27/20 25 01/26/2025 ESTRA DIOL estradiol 44 pg/mL Healt hy Men: 11.3- 43.2 pg/mL Healt hy Postm enopa usal Women : Postm enopa use: <5-13 8 pg/mL Healt hy Pregn ant Women : 1st trime ster: 154-3 243 pg/mL 2nd trime ster: 1561- 03694 pg/mL 3rd trime ster: 8525- >3000 0 pg/mL Healt hy Women Cycle Phase : Folli cular : 30.9- 90.4 pg/mL Ovula tion: 60.4- 533 pg/mL Lutea l: 60.4- 232 pg/mL Healt hy Women Cycle Sub-P hase: Early Folli cular : 20.5- 62.8 pg/mL Inter media te Folli cular : 26-79 .8 pg/mL Late Folli cular : 49.5- 233 pg/mL Ovula tion: 60.4- 602 pg/mL Early Lutea l: 51.1- 179 pg/mL Inter media te Lutea l: 66.5- 305 pg/mL Late Lutea l: 30.2- 222 pg/mL Not Available [address], [place], [address], 01/26/2025 23:01:27 01/27/20 25 01/26/2025 PROLA CTIN LEVEL prolactin 14 NG/mL 01-12 Not Available [address], [place], [address], 01/26/2025 23:01:28 01/27/20 25 01/26/2025 TSH WITH REFLE X TO FREE T4 TSH 0.89 uIU/m L 0.30-4 .20 Not Available [address], [place], [address], 01/26/2025 23:01:28 01/27/20 25 01/26/2025 ANTI- MULLE MAYELA HORMO NE AMH anti-mulleri an hormone 17.700 NG/mL 1.200- 12.000 high Not Available [address], [place], [address], 01/26/2025 23:02:29 03/09/20 25 03/09/2025 pregn nato test, urine Unknown Analyte negati ve Not Available [id number] [address], [place], [address], 03/09/2025 11:50:50 03/09/20 25 03/09/2025 pregn nato test, urine Unknown Analyte Negati ve Not Available [address] [facility] [address], [place], [address], 03/09/2025 11:50:50 03/09/20 25 03/09/2025 US, salin e infus ed uteru s No observ ation record ed. marquez Florian [address], [place], [address], 03/09/2025 14:04:28 Result Notes None recorded. 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 Procedures Surgical History Date Name Laterality Status Provider Name and Address Organization Details Recorded Time 03/09/20 25 Sono-Hysterosalpin gogram ([facility]) [place] [address], [place], [address], [place] - 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 03/09/2025 16:01:55 05/25/20 24 Date of Last Pap Smear completed BINU YOUNG PA-C [address], [place], [address], [place] - 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 06/01/2024 17:15:44 08/23/19 22 Cholecystectomy completed Catia Garcia [place] - 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 01/16/2025 16:43:41 08/23/19 21 cholecystectomy completed Catia Garcia [place] - 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 05/25/2024 15:43:55 procedure on eye completed Catia Garcia [facility]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 Procedure Notes None recorded. Medical Equipment None Reported. Allergies No known drug allergies Medications Name Sig Start Date Stop Date Status Note LastModified by Organization Details LastModified Time methylphenid ate ER 54 mg tablet,exten ded release 24 hr TAKE 1 TABLET BY MOUTH EVERY DAY IN THE MORNING 01/26 completed Not Available Not Available Not Available cefadroxil 500 mg capsule 05/25 completed Not Available Not Available Not Available progesterone micronized 200 mg capsule TAKE 1 CAPSULE EVERY DAY BY ORAL ROUTE AT BEDTIME FOR 12 DAYS. active Not Available Not Available No t Available ondansetron 4 mg disintegrati ng tablet 05/25 completed Not Available Not Available Not Available methylphenid ate ER 36 mg tablet,exten ded release 24 hr 05/25 completed Not Available Not Available Not Available Incassia 0.35 mg tablet TAKE 1 TABLET BY MOUTH EVERY DAY 11/29 completed Not Available Not Available Not Available Vitals Date Recorded Body height Body mass index (BMI) Body weight Systolic And Diastolic Provider Name and Address Organization Details Last Updated DateTime 12/15/2024 170.18 cm 32.1 kg/m2 97880.72 g 140/80 mm[Hg] Madelyn Parsons [facility] 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 12/15/2024 15:54:44 Date Recorded Body height Body mass index (BMI) Body weight Systolic And Diastolic Provider Name and Address Organization Details Last Updated DateTime 01/16/2025 170.18 cm 34.3 kg/m2 61738.73 g 138/86 mm[Hg] Catia Garcia [facility] 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 01/16/2025 16:46:37 Date Recorded Body height Provider Name an d Address Organization Details Last Updated DateTime 03/09/2025 170.18 cm Catia Garcia [facility] OB/G YN 03/09/2025 11:46:46 Date Recorded Body weight Body mass index (BMI) Body height Systolic And Diastolic Provider Name and Address Organization Details Last Updated DateTime 05/25/2024 213449.51 g 34.8 kg/m2 170.18 cm 128/86 mm[Hg] Catia Ta 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 05/25/2024 15:40:48 Social History Question Answer Notes LastModified by Organizat ion Details LastModified Time Tobacco Smoking Status Never Smoker Catiaanali FontaineJOSE ENRIQUE hard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 No Information not available 12/15/2024 Is Blood Transfusion Acceptable In An Emergency? Yes Information not available 12/15/2024 What Is Your Level Of Caffeine Consumption? Moderate Information not available 05/25/2024 What Type Of Diet Are You Following? REGULAR Information not available 05/25/2024 What Is The Highest Grade Or Level Of School You Have Completed Or The Highest Degree You Have Received? [id number] Information not available 12/15/2024 How Many Times Per Week Do You Exercise? 3-4 Times Per Week Information not available 12/15/2024 How Many Times In The Past Year Have You Used An Illegal Drug Or Used A Prescription Medication For Nonmedical Reasons? 0 Information not available 12/15/2024 Country Of [facility] Informat ion not available 05/25/2024 History Of Domestic Violence No Information no t available 05/25/2024 Have You Ever Been Or Currently Are A Victim Of Sexual Abuse? No Information not available 05/25/2024 Have You Ever Been Or Currently Are A Victim Of Physical Abuse? No Information not available 05/25/2024 What Is Your Relationship Status? Information not available 05/25/2024 Has Tobacco Cessation Counseling Been Provided? No Information not available 12/15/2024 Are You Currently In School? No Information not available 05/25/2024 How Many Days In The Past Year Have You Consumed 4 Or More Drinks? 0 Information no t available 12/15/2024 Sex: Female Functional Status Question Answer Note LastModified by Organizat ion Details LastModified Time How many times per week do you consume alcohol? Less than 1 time per week Information not available 12/15/2024 Do you use any illicit or recreational drugs? No Information not available 05/25/2024 Do you or have you ever used any other forms of tobacco or nicotine? No Information not available 05/25/2024 What is your level of alcohol consumption? Occasional Information not available 05/25/2024 Are you currently employed? 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 Never used electronic cigarettes Information not available 01/16/2025 What is your exercise level? Occasional Information not available 05/25/2024 Mental Status None recorded. Family History Relationship Description Onset Age of this Age Resolved Age Notes LastModified by Organization Details LastModified Time Mother Depressive disorder Not available 12/15 15:53:31 Mother Disorder of thyroid gland Not available 12/15 15:55:37 Maternal Grandmother Depressive disorder Not available 12/15 15:53:47 Maternal Grandmother Osteoporosis Not availabl e 12/15/2024 15:55:24 Medical History Condition Response Neurology- Memory Loss/Dementia N Neurology- Stroke/TIA N Rheumatology- Fibromyalgia/Chronic Pain N Dermatology-Acne N Cancer- Genetic Screening N Endocrinology- Vitamin Deficiency N Endocrinology-Other N Urology-Other N Cardiology- Atrial fib/atrial flutter N ID- Usual childhood diseases- Chicken Po x N Rheumatology- Autoimmune Disease N Nephrology-Renal Disease N Neurology- Seizures/Epilepsy N Cardiology- Heart Attack N Ortho-Fractures N Reviewed with no changes N Neurology- Neuropathy N Endocrinology- Prolactinoma N Urology- Recurrent Urinary Tract Infecti ons N Pulmonary- Seasonal Allergies/Allergic R hinitis N Psych- PMS/PMDD N Pulmonary-Other N Pulmonary- Lung Disease N Endocrinology- Glucose Intolerance/Insul in Resistance N Psych- Anxiety Disorder Y Hematology- Anemia N GI- Reflux/Ulcers N Cancer- Skin N GI- Irritable Bowel Syndrome N Cardiology- Heart Disease N GI- Colon Polyps N Ortho-Other N Endocrinology- Osteopenia N Psych-Other N ID- MRSA N Endocrinology- Elevated Prolactin N ID-Other N Psych- Eating Disorder N Ortho- Arthritis N Urology- Urinary Incontinence N Pulmonary- Asthma N Urology- Hematuria (Blood in Urine) N Pulmonary- Sleep Apnea N Neurology- Dementia N Vascular-Aneurysm N Urology- Interstitial Cystitis N Endocrinology- Hypothyroidism N Eyes-other N Neurology- Multiple Sclerosis N Rheumatology- Arthritis N GI- Hemorrhoids N Neurology-Other N ID- Rheumatic Fever N Hematology- Blood Clotting Disorder/Fact or V Leiden N Ortho- Degenerative Joint Disease N Cardiology-Other N Hematology- Bleeding Disorder N Endocrinology- Osteoporosis N Psych- Depression N Hematology-Other N Ortho-Chronic Back Pain N ID- Tuberculosis/Positive PPD N Dermatology-Other N Dermatology-Eczema/Psoriasis N ID- HIV N Cardiology- High Cholesterol N Cardiac- Mitral Valve Prolapse N Cancer- Ovary N ID- Chicken Pox/Shingles N Cardiology- Heart Arrhythmia N Urology- Kidney or Bladder Problems N Rheumatology- Restless Leg Syndrome N Psych- Mental Disorder N Endocrinology- Hyperthyroidism N Endocrinology- Thyroid Problems N Cancer- Breast N Psych- ADD Y ID- Herpes N GI- Liver Disease/Hepatitis N Weight Management/Obesity N Cancer- Colon N ENT- Hearing Loss N Hematology- Blood Transfusion N Cancer- Vulvar N COMMUNICATION LECTURER- Recurrent Vaginitis N Cancer- Vaginal N GI-Other N Neurology- Headaches/Migraines Y Endocrinology- Diabetes N Cancer- Cervical N No diseases or conditions N Pulmonary- COPD/Emphysema N GI- Vitamin Deficiency N GI- Crohn's/Ulcerative Colitis N Endocrinology- History of Gestational Di abetes N Psych- Bipolar Disease N ENT- Seasonal Allergies/Allergic Rhiniti s N Cardiology- High Blood Pressure N Cancer- Lung N Cancer- Endometrial/Uterine N Eyes- Glaucoma N Eyes- Vision Loss/Macular Degeneration N ENT-Other N Rheumatology-Other N Cardiac- Aneurysm N Urology- Kidney Infection N Cardiology- Heart Murmur/Mitral Valve Pr olapse N Hematology- DVT/Pulmonary Embolism N Urology- Stones N Cancer-Other N GI- Gallbladder Disease N Gynecological History Statement/Question Response History of Vulvar Dysplasia N Date of LMP 03/02/2025 History of Cervical Dysplasia N Menstrual Cycle Length (days) Do you have history of sexual trauma? N Date of Last Diabetes Screening 05/25/20 24 Sexually Active Y Age at first intercourse 19 Diethylstilbestrol (THANH) exp osed daughters of women who took THANH during ? N History of PCOS Y History of Endometriosis N History of Abnormal PAP Y History of Recurrent Ovarian Cysts N Total lifetime partners less than 5 16 Post Menopausal Hormone Therapy User Nev er Age at Menarche: 18 History of Sexually Transmitted Infectio n N Y HPV Vaccine Complete Current Control Method Planning Pr egnancy History of Fibroids N Date of Last Pap Smear 05/25/2024 Date of Last Cholesterol Screening 05/25 History of Dysmenorrhea N Obstetrics History GPAL:G 0 P 0 0 0 0 Immunizations Vaccine Type Date Status Note Provider Nam e and Address Organization Details Recorded Time Hib-Hep B 3 completed BINU YOUNG PA-C [address], [place], [address], [place] 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 05/25/2024 15:48:38 Hib-Hep B 3 completed BINU YOUNG PA-C [address], [place], [address], [place] 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 05/25/2024 15:48:38 Hib-Hep B 3 completed BINU YOUNG PA-C [address], [place], [address], [place] 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 05/25/2024 15:48:38 HPV9 9 completed BINU YOUNG PA-C [address], [place], [address], [place] 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 05/25/2024 15:48:38 IPV 3 dione YOUNG PA-C [address], [place], [address], [place] 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 05/25/2024 15:48:38 IPV 3 dione YOUNG PA-C [address], [place], [address], [place] 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 05/25/2024 15:48:38 IPV 4 completed BINU YOUNG PA-C [address], [place], [address], [place] 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 05/25/2024 15:48:38 IPV 6 completed NELI MCGINNISC [address], [place], [address], [place] 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 05/25/2024 15:48:38 MMR 4 completed BINU YOUNG PA-C [address], [place], [address], [place] 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 05/25/2024 15:48:38 MMR 6 completed NELI MCGINNISC [address], [place], [address], [place] 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 05/25/2024 15:48:38 COVID-19, mRNA, LNP-S, PF, 30 mcg/0.3 mL dose 1 completed BINU YOUNG PA-C [address], [place], [address], [place] 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 05/25/2024 15:48:38 COVID-19, mRNA, LNP-S, PF, 30 mcg/0.3 mL dose 1 completed NELI MCGINNISC [address], [place], [address], [place] 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 05/25/2024 15:48:38 pneumococcal conjugate PCV 7 3 completed NELI MCGINNISC [address], [place], [address], [place] 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 05/25/2024 15:48:38 pneumococcal conjugate PCV 7 3 completed NELI MCGINNISC [address], [place], [address], [facility] - 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 05/25/2024 15:48:38 pneumococcal conjugate PCV 7 3 completed BINU YOUNG PA-C [address], [place], [address], [facility] - 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 05/25/2024 15:48:38 pneumococcal conjugate PCV 7 3 completed BINU YOUNG PA-C [address], [place], [address], [facility] - 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 05/25/2024 15:48:38 Tdap 5 completed BINU YOUNG PA-C [address], [place], [address], [facility] - 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 05/25/2024 15:48:38 varicella 8 completed BINU YOUNG PA-C [address], [place], [address], [facility] - 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 05/25/2024 15:48:38 varicella 3 completed BINU YOUNG PA-C [address], [place], [address], [facility] - 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 05/25/2024 15:48:38 Influenza, split virus, trivalent, preservative 3 completed BINU YOUNG PA-C [address], [place], [address], [facility] - 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 05/25/2024 15:48:38 Influenza, split virus, trivalent, PF 5 completed BINU YOUNG PA-C [address], [place], [address], [facility] - 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 05/25/2024 15:48:38 Influenza, split virus, trivalent, PF 6 completed BINU YOUNG PA-C [address], [place], [address], [place] 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 05/25/2024 15:48:38 Meningococcal MCV4O 5 completed BINU YOUNG PA-C [address], [place], [address], [place] 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 05/25/2024 15:48:38 DTaP 3 completed BINU YOUNG PA-C [address], [place], [address], [place] 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 05/25/2024 15:48:38 DTaP 3 completed BINU YOUNG PA-C [address], [place], [address], [place] 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 05/25/2024 15:48:38 DTaP 3 completed BINU YOUNG PA-C [address], [place], [address], [place] 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 05/25/2024 15:48:38 DTaP 4 completed BINU YOUNG PA-C [address], [place], [address], [place] 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 05/25/2024 15:48:38 DTaP 6 completed BINU YOUNG PA-C [address], [place], [address], [place] 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 05/25/2024 15:48:38 Past Encounters Encounter ID Performer Location Encounter Start Date Encounter Closed Date Diagnosis/Indication Diagnosis SNOMED-CT Code Diagnosis ICD10 Code Diagnosis IMO Codes Diagnosis Note [id number] THONY MCCRAY MD [id number] Jessica_[place] [address] [place] [address],[place] [address] [place] [address] 05/25/2024 15:36:46 05/25/2024 17:23:47 Gynecologic examination 21490114 Z01.419 Cervical Cancer Screening: Collected todayFasti ng labs: Fasting labs done todayBreas t Cancer Screening: Not indicated due to age or family historyCol on Cancer Screening: Not indicated due to age or family history Risk Factors for Osteoporos is:Osteopo rosis Screening: Not indicated due to age Vaccines:C OVID (yearly): Recommende d the vaccineInf luenza (yearly): Recommende d the vaccineHPV Vaccine (-45): Started series but recommend she completesT dap or Td (q 10 years): Completed- up to dateShingl es Vaccine (50 & Older): Not indicated due to age or risk factorsRSV (>60 who are at risk): Not indicated due to age or risk factorsPne umococcal (>65): Not indicated due to age or risk factors Secondary amenorrhea [id number] N91.1 Disc likely PCOS given her hx- hirsutism and pco. Reviewed diagnosis of PCOS. Discussed implicatio ns for fci health including adverse lipid effects and increased risk of Type II diabetes. Reviewed risks of endometria l hyperplasi a and the need for menses at least every 3 months for endometria l protection . Will check labs today. wants to go on ocp to manage but due to migraine history- will try minipill. Attention deficit hyperactivity disorder [id number] F90.9 following w/ psych. Screening for malignant neoplasm of cervix 016005787 Z12.4 Migraine with aura 30485 06 G43.109 no estrogen. Venereal d isease screening 729928482 Z11.3 agrees to testing. Administra tion of viral vaccine [id number] Z23 shot number 2 [id number] BARBRA CARRILLO MD [id number] [place]_ED [place] [address] [place] [address] 12/15/2024 15:27:59 12/20/2024 15:25:09 Polycystic ovary syndrome [id number] E28.2 117538 - Discussed the etiology of PCOS and why it is important to have a cycle at least every 3 months - meet 2/3 [place] criteria- Encouraged to use LH/OPKs to monitor for ovulation and timing intercours e around ovulation- Due to age, recommend TTC for ~12 months prior to initiating infertilit y, although could schedule a consult at any point to understand induced ovulation if desires- Recommend a small reduction in weight and lifesyle modificati ons can be very helpful with PCOS symptoms- Recommende d laurita-inosit ol supplement in addition to PNV [id number] THONY NASH MD [id number] Jessica_JORDEN [place] [address] [facility] [place] [address] 01/16/2025 16:41:49 01/16/2025 18:06:19 Polycystic ovary syndrome 518329692 E28.2 [id number] she does not ovulate and therefore cannot get if she never has the opportunit y. she really wants now. we will induce a period with progestero ne and will draw day 3 labs. she will also do femvue and [place] [id number] THONY NASH MD [id number] T_[place] [address] [facility] [address] [place] [address] 03/09/2025 10:58:04 03/09/2025 12:10:28 Infertility study 42467030 Z31.49 87206 she will obtain a semen analysis today and if that is normal she will follow up for monitored cycles with letrozole [id number] THONY NASH MD [id number] COSME SALAZAR [address] [facility] [place] [address] 03/09/2025 10:56:32 03/09/2025 12:10:58 Female infertility 9082675 N97.9 83623 Health Concerns Section Related Observation LastModified by Organization Detai ls LastModified Time None Recorded Concern Status LastModified by Organization Details LastModified Time None Recorded Advance Directives Directive N: Payers Insurance Date Sequence Insurance Name Policy Number Policy Little Covered Member ID Little Member ID Guarantor Name 05/14/2025 1 [place] [id number] Ilda Zhou [id number] Ilda Zhou 05/25/2024 1 [place] [employer] Ilda Zhou [id number] Ilda Zhou 01/12/2025 1 [place] [id number] Ilda Zhou [id number] Ilda Zhou 05/25/2024 SLIDING FEE SCHEDULE - DISCOUNT Ilda Zhou Notes Date Note Type Note Provider Name and Address Organization Details Recorded Time 4 text/html Annual Premenopausal ([facility])Reported by PatientHPIFor sti screen, patient reportsdesires. For patient relationship to practice, patient reportsnew patient. For current medical history, patient reportsno active medical problemsandno recent surgeries or hospitalizations. For relevant family history, patient reportsno family history of breast cancer,no family history of ovarian cancer,no family history of uterine cancer,no family history of colon cancer, andno family history of blood clots/dvt. For menstrual history, patient reportsfrequency of menses: irregular,duration of flow: 3 days,quantity of flow: light,clots: no, andcramps: yes. For contraceptive method, patient reportssatisfied: condoms. For sexually active, patient reportsyes: spouse. For health/prevention, patient reportsexercise: yes,multivitamins: no,vitamin d: no,adequate calcium intake: yes,breast self exam: no,seat belt use: yes,tobacco use: no,safe at home: yes, andmental health screen: normal. For pap smear +/- hpv cotesting, patient reportsdue. For patient has, patient reportsprimary care physician: no.Patient states her menstrual cycles are irregular since about a year ago - hasn't had a period for three months; Patient has taken a test and it was negative; Catia Jurado/DARIANA menarche age 18.can be very irregular. has gone 4 months without a period.occasional acne on chin.hirsutism- excess hair growth on chin, thighs, chest etc.had pelvic u/s in 2019 that showed PCO. used the patch in the past for control. stopped after she had her gallbladder removed. Hereditary Cancer Risk Assessment HPI.LowRisk The patient completed the familial health questionnaire. She is at low risk for a genetic cancer syndrome. Imported from [employer] on 05/25/2024 BINU YOUNG PA-C [address] [facility],[address], [place], [address], [place] 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 05/25/2024 16:56:08 5 text/html ROS as noted in the HPI New patient here to discuss difficulty getting . Reports she was diagnosed w/ PCOS in fall. Was put on OCPs at that time and stopped then about 2 weeks. ago. Prior to being on OCPs, periods used to be very heavy. Over time they lightened until they stopped altogether. Reports she went about 4-5 months without a period at all prior to OCPs. JIMENEZ DIAZ CNM [address], [place], [address], [facility] - 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 12/20/2024 14:33:01 5 text/html Infertility Consult ()Reported by PatientHPIFor patient s relationship with the practice, patient reportsestablished patient. For duration of unprotected intercourse, patient reports__ days, __ weeks, 1 months, __ years. For length to conceive with previous , patient reportsno previous .Female HistoryFor age of menarche, patient [id number]. For previously tried contraceptive methods, patient reportsoral contraceptive pills.Male HistoryFor name of partner, (hi barnhart; 10/02/83; [phone];).Patient states they tried conceiving last year for six to seven months and was unsuccessful; Patient states she was on the pill to help regulate her cycles and went off the pill two months ago and tried conceiving last month; Patient states her cycles are irregular unless she is on control; Catia Jurado/DARIANAno spontaneous menstrual cycle. tried ovulation predictor kits and does not ovulate. had some labs drawn and was told she has PCOS and to keep trying but she knows she cant get [place] [address], [place], [address], [place] 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 01/17/2025 22:08:35 5 text/html Patient presents for a femvue; Catia Jurado/[place] [address], [place], [address], [place] 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 03/09/2025 16:03:00 OBGyn Episode No OBEpisode recorded.
[2025-06-26] MEDS: TETANUS/DIPHTH/PERTUSSIS 0.5 ML SYRINGE IM (06:50)
[2025-06-26 06:54] VITALS: BP 139/86; PULSE 85; RESP 16; TEMP 36.7
[2025-06-26 06:55] VITALS: BP 131/84; PULSE 81; RESP 16; TEMP 36.7; O2SAT 98
== END 2025-06-26 06:56 | disposition home or self-care (01) ==
PROVIDERS: Emergency Provider Student in an Organized Health Care Education/Training Program
DX: S61.412A Laceration without foreign body of left hand, initial encounter (principal); W26.0XXA Contact with knife, initial encounter; Y99.0 Civilian activity done for income or pay
CPT/HCPCS: 12002; 90715; 99282; 99283